=== PATIENT | female | born 1990 | race Caucasian/White ===

== ENCOUNTER 2017-06-17 11:22 | Emergency (ER) | payer OTHER ==
[2017-06-17 11:54] VITALS: BP 112/69; PULSE 71; TEMP 98.6; BMI 26.6
--- NOTE | 2017-06-17 11:58 | PDOC ---
History of Present Illness - General Chief Complaint: Cold Symptoms Stated Complaint: COUGH Time Seen by Provider: 06/17/17 11:55 History Source: Patient Exam Limitations: No Limitations - History of Present Illness Initial Comments: CHIEF COMPLAINT: 26 y/o afebrile female c/o sore throat and intermittent cough x 2 weeks. HISTORY OF PRESENT ILLNESS: Patient denies f/c, n/v/d, earache, HEART, runny nose , CP, SOB, abd pain, decrease in PO intake. Her daughter is here with her and has the flu. Vital signs on arrival are within normal limits. REVIEW OF SYSTEMS: GENERAL/CONSTITUTIONAL: No fever/chills. No weakness. No weight change. HEAD, EYES, EARS, NOSE AND THROAT: No change in vision. No ear pain or discharge. +sore throat. CARDIOVASCULAR: No chest pain or shortness of breath. RESPIRATORY: +dry cough. No wheezing, or hemoptysis. GASTROINTESTINAL: No abd pain, nausea, vomiting, diarrhea. GENITOURINARY: No dysuria, frequency, or change in urination. MUSCULOSKELETAL: No joint or muscle swelling or pain. No neck or back pain. SKIN: No rash or easy bruising. NEUROLOGIC: No headache, vertigo, loss of consciousness, or loss of sensation. PHYSICAL EXAM: GENERAL: The patient is awake, alert, and fully oriented, in no acute distress. She is very well appearing. HEAD: Normal with no signs of trauma. NECK: No cervical lymphadenopathy. ENT: Pupils equal, round and reactive to light, extraocular movements intact, sclera anicteric, conjunctiva clear. Posterior pharyngeal erythema without tonsilar edema or exudate. Uvula midline. No soft/hard palate deformities. LUNGS: Clear to auscultation bilaterally. Normal excursion. No respiratory distress or use of accessory muscles. CV: RRR, S1/S2, no MRG. Cap refill < 2 sec. ABDOMEN: Soft, non-distended, non-tender even to deep palpation, no hepatomegaly or splenomegaly, no masses. EXTREMITIES: Normal range of motion, no edema. NEUROLOGICAL: Normal speech, normal gait. CN II-XII grossly intact. PSYCH: Normal mood, normal affect. SKIN: Warm, dry, normal turgor, no rashes or lesions noted. Past History - Past Medical History Allergies/Adverse Reactions: Allergies Allergy/AdvReac Type Severity Reaction Status Date / Time No Known Allergies Allergy Verified 06/17/17 11:51 Home Medications: Ambulatory Orders No Home Medications 0 dose .ROUTE UTDICT 12/12/13 COPD: No DVT: No Thyroid Disease: No - Immunization History Immunization Up to Date: Yes - Suicide/Smoking/Psychosocial Hx Smoking History: Never smoked Have you smoked in the past 12 months: No Information on smoking cessation initiated: No Hx Alcohol Use: No Drug/Substance Use Hx: No Substance Use Type: Alcohol *Physical Exam - Vital Signs Last Vital Signs Temp Pulse Resp BP Pulse Ox 98.6 F 71 16 112/69 98 06/17/17 11:52 06/17/17 11:52 06/17/17 11:52 06/17/17 11:52 06/17/17 11:52 Medical Decision Making - Medical Decision Making A/P: 26 y/o female with pharyngitis. Will give supportive care instructions. Suggested she return to the ER with any worsening or concerning symptoms. The patient verbalizes understanding of all instructions, has no further questions and is awaiting discharge. *DC/Admit/Observation/Transfer Diagnosis at time of Disposition: Pharyngitis Qualifiers: Pharyngitis/tonsillitis etiology: unspecified etiology Qualified Code(s): J02.9 - Acute pharyngitis, unspecified - Discharge Dispostion Disposition: HOME Condition at time of disposition: Good - Referrals - Patient Instructions Printed Discharge Instructions: DI for Viral Pharyngitis Additional Instructions: Discharge INstructions: -Take motrin or advil for pain -Gargle with warm salt water -Eat soft/cold food to help with sore throat -Return to the ER with any worsening or concerning symptoms - Post Discharge Activity Forms/Work/School Notes: Back to Work
== END 2017-06-17 13:18 | disposition home or self-care (01) ==
LOC: JERFT 11:22
DX: J02.9 Acute pharyngitis, unspecified (principal)
CPT/HCPCS: 99281-25

== ENCOUNTER 2019-06-06 10:35 | Emergency (ER) | payer OTHER ==
[2019-06-06 10:57] VITALS: BP 119/86; PULSE 55; TEMP 98.4; BMI 28.3
[2019-06-06] MEDS ORDERED: DIPHTH,PERTUSS(ACELL),TET 0.5 ML DISP.SYRIN IM ONE ×2 (11:33→11:35)
--- NOTE | 2019-06-06 11:37 | PDOC ---
History of Present Illness - General Chief Complaint: Laceration Stated Complaint: FINGER LACERATION Time Seen by Provider: 06/06/19 10:43 History Source: Patient Exam Limitations: No Limitations - History of Present Illness Initial Comments: 06/06/19 11:34 28-year-old female presenting with laceration to her right middle finger While cutting food during dinner. The patient washed it out and put a dressing on it however this morning she banged her finger on the door and it was persistently oozing blood so she came for evaluation. Patient denies any other injuries, numbness, tingling, weakness, denies any bleeding diatheses. Patient is right- handed. Works in a kitchen. ROS: skin - +laceration neurological: no reported numbness,weakness, tingling hematologic: no reported easy bruising, easy bleeding Physicial Exam: GENERAL: The patient is awake, alert, and fully oriented, Nontoxic - in no acute distress. EXTREMITIES: R middle finger exam: approximately 1.5 cm curvilinear laceration over laterl aspect of finger tip with partial flap. oozing blood. no fb, area clean a&p - ~15 hr laceration area was irrigated throughly tacking stitch was placed over flap and bacitracin was applied tetanus updated will give prophylactic abx return precautions wree discussed Past History - Past Medical History Allergies/Adverse Reactions: Allergies Allergy/AdvReac Type Severity Reaction Status Date / Time No Known Allergies Allergy Verified 06/06/19 10:42 Home Medications: Ambulatory Orders No Home Medications 0 dose .ROUTE UTDICT 12/12/13 Cephalexin Monohydrate [Keflex -] 500 mg PO Q8H #12 capsule 06/06/19 COPD: No DVT: No Thyroid Disease: No - Immunization History Immunization Up to Date: Yes - Psycho Social/Smoking Cessation Hx Smoking History: Never smoked Have you smoked in the past 12 months: No Hx Alcohol Use: Yes (OCCASIONAL) Drug/Substance Use Hx: No Substance Use Type: Alcohol *Physical Exam - Vital Signs Last Vital Signs Temp Pulse Resp BP Pulse Ox 98.4 F 55 L 15 119/86 100 06/06/19 10:41 06/06/19 10:41 06/06/19 10:41 06/06/19 10:41 06/06/19 10:41 Procedures - Consent Consent obtained: Verbal - Laceration/Wound Repair Right Distal 3rd digit Wound Length: to 2.5 cm Wound Explored: clean Wound's Depth, Shape: superficial Irrigated w/ Saline: Yes Anesthesia: 1% Lidocaine Amount of Anesthetic (ccs): 2 Wound Debrided: minimal Wound Repaired With: Sutures Suture Size/Type: 5:0 Number of Sutures: 1 Layer Closure: No Sterile Dressing Applied: Yes Discharge - Discharge Information Problems reviewed: Yes Clinical Impression/Diagnosis: Finger laceration Qualifiers: Encounter type: initial encounter Finger: middle finger Damage to nail status: without damage Foreign body presence: without foreign body Laterality: right Qualified Code(s): S61.212A - Laceration without foreign body of right middle finger without damage to nail, initial encounter Condition: Good Disposition: HOME - Admission No - Follow up/Referral Referrals: Sophia Mcnally CNM [Primary Care Provider] - - Patient Discharge Instructions Patient Printed Discharge Instructions: DI for Laceration Repair Additional Instructions: Return to the emergency department immediately with ANY new, persistent or worsening symptoms including any redness, bleeding, purulent discharge, swelling or other concerns. Keep the area clean and dry for 48 hours. Afterwards he may clean gently with soap and water. Apply bacitracin twice a day. Keep the area away from the sun for the next 9 months, please use sunscreen and wear a hat if you need to be in the sun to improve appearance of the scar. Return in 7-10 days for suture removal. You MUST call and follow up with your doctor tomorrow for further evaluation of your symptoms. Results were discussed with you. Please make sure your doctor reviews the results of your emergency evaluation. Print Language: ANDORRAN - Post Discharge Activity
== END 2019-06-06 11:44 | disposition home or self-care (01) ==
LOC: SUPCPDRO 10:35 → FER 10:35
PROC: 3E0234Z Introduction of Serum, Toxoid and Vaccine into Muscle, Percutaneous Approach (ICD-10-PCS; principal; 2019-06-06)
DX: S61.212A Laceration without foreign body of right middle finger without damage to nail, initial encounter (principal); W26.0XXA Contact with knife, initial encounter; Y93.89 Activity, other specified; Y92.9 Unspecified place or not applicable
CPT/HCPCS: 90471; 90715; 99282-25

== ENCOUNTER 2019-06-13 06:39 | Emergency (ER) | payer OTHER ==
[2019-06-13 06:47] VITALS: BP 118/80; PULSE 75; TEMP 98.2; BMI 28.3
--- NOTE | 2019-06-13 06:55 | PDOC ---
Suture Removal/Wound Check HPI - History of Present Illness Chief Complaint: Suture/Staple Removal(Here) Stated Complaint: SUTURE REMOVAL Time Seen by Provider: 06/13/19 06:47 History Source: Yes: Patient - Previous ED Treatment Type of procedure performed on last visit: Yes: Laceration Repair - Onset of Previous Treatment Date of Occurence: 06/06/19 Past History - Past Medical History Allergies/Adverse Reactions: Allergies Allergy/AdvReac Type Severity Reaction Status Date / Time No Known Allergies Allergy Verified 06/13/19 06:43 Home Medications: Ambulatory Orders No Home Medications 0 dose .ROUTE UTDICT 12/12/13 COPD: No DVT: No Thyroid Disease: No - Immunization History Immunization Up to Date: Yes - Psycho Social/Smoking Cessation Hx Smoking History: Never smoked Have you smoked in the past 12 months: No Information on smoking cessation initiated: No Hx Alcohol Use: No Drug/Substance Use Hx: No Substance Use Type: Alcohol Suture Removal/Wound Check PE - Physical Exam Laceration/Wound Check Symptoms: reports: Resolved. denies: Fever, Chills, Redness, Discharge, Bleeding Current Severity Level: Mild Maximum Severity Level: Mild *Physical Exam - Vital Signs Last Vital Signs Temp Pulse Resp BP Pulse Ox 98.2 F 75 16 118/80 100 06/13/19 06:44 06/13/19 06:44 06/13/19 06:44 06/13/19 06:44 06/13/19 06:44 Medical Decision Making - Medical Decision Making 06/13/19 06:54 well healing lac suture removed Discharge - Discharge Information Problems reviewed: Yes Clinical Impression/Diagnosis: Laceration Condition: Good - Follow up/Referral - Patient Discharge Instructions Patient Printed Discharge Instructions: DI for Minor Laceration - Post Discharge Activity
== END 2019-06-13 06:56 | disposition home or self-care (01) ==
LOC: FER 06:39
DX: Z48.02 Encounter for removal of sutures (principal)
CPT/HCPCS: 99281-25

== ENCOUNTER 2022-07-27 17:03 | Emergency (ER) | payer OTHER ==
[2022-07-27 17:18] VITALS: BP 119/74; PULSE 69; RESP 15; TEMP 98.9; BMI 26.6
[2022-07-27] MEDS ORDERED: DOXYCYCLINE HYCLATE 100 MG CAPSULE PO ONE ×2 (17:43→17:59)
== END 2022-07-27 18:08 | disposition home or self-care (01) ==
LOC: FER 17:03
PROC: 09C1XZZ Extirpation of Matter from Left External Ear, External Approach (ICD-10-PCS; principal; 2022-07-27)
DX: S00.452A Superficial foreign body of left ear, initial encounter (principal); W45.8XXA Other foreign body or object entering through skin, initial encounter
CPT/HCPCS: 10120-25; 99283-25

== ENCOUNTER 2022-08-02 17:18 | Emergency (ER) | payer OTHER ==
[2022-08-02 17:22] VITALS: BP 98/58; PULSE 63; RESP 20; TEMP 98.8; BMI 26.6
== END 2022-08-02 18:14 | disposition home or self-care (01) ==
LOC: FER 17:18
DX: S01.312D Laceration without foreign body of left ear, subsequent encounter (principal); X58.XXXD Exposure to other specified factors, subsequent encounter; Z48.02 Encounter for removal of sutures
CPT/HCPCS: 99281-25

== ENCOUNTER 2024-09-14 10:22 | Emergency (ER) | payer OTHER ==
[2024-09-14 10:36] VITALS: BP 108/72; PULSE 103; RESP 20; TEMP 103.1; BMI 29.1
[2024-09-14] MEDS ORDERED: IBUPROFEN 600 MG TABLET (FP) PO ONE (11:14)
[2024-09-14] MEDS ORDERED: ACETAMINOPHEN 500 MG TABLET (FP) ONE (11:15)
[2024-09-14] MEDS: IBUPROFEN 600 MG TABLET (FP) PO ONE (11:17)
[2024-09-14] MEDS: ACETAMINOPHEN 500 MG TABLET (FP) PO ONE (11:18)
[2024-09-14 11:35] LABS: THROAT:GRP A STREP NOT DETECTED (NOTDETECTED)
== END 2024-09-14 11:19 | disposition home or self-care (01) ==
LOC: JERFT 10:22
DX: R50.9 Fever, unspecified (principal); R05.9 Cough, unspecified; J02.9 Acute pharyngitis, unspecified; R51.9 Headache, unspecified; M79.10 Myalgia, unspecified site; R63.0 Anorexia; B34.9 Viral infection, unspecified
CPT/HCPCS: 0241U-QW; 87651; 99283-25